=== PATIENT | female | born 1995 | race Two or more races ===

== ENCOUNTER 2020-10-18 01:00 | Emergency (ER) | payer SELFPAY ==
[~2020-10-18] VITALS: Ht 160 cm; Wt 48.0 kg
[2020-10-18] MEDS ORDERED: SODIUM CHLORIDE 0.9% 1,000 ML IV ONE (02:00)
[2020-10-18 02:20] LABS: CHLORIDE 106 mEq/L (98-107)
[2020-10-18 02:21] LABS: BASOPHILS % 0.6 % (0.0-2.0); EOSINOPHILS % 0.1 % (0.0-5.0); HEMATOCRIT. 29.5 % (36.0-48.0); HEMOGLOBIN. 9.5 g/dL (12.0-16.0); LYMPHOCYTES % 15.7 % (20.0-50.0); MEAN CORPUSCULAR HEMOGLOBIN 24.8 pg (28.0-32.0); MEAN CORPUSCULAR VOLUME 77.1 fL (81.0-99.0); MEAN PLATELET VOLUME 8.3 fl (7.4-10.4); MONOCYTES % 3.7 % (2.0-8.0); NEUTROPHILS % 79.9 % (40.0-76.0); PLATELET 283 x1000/uL (130-400); RED BLOOD CELL COUNT 3.83 mill/uL (4.2-5.4); RED CELL DISTRIBUTION WIDTH 22.3 % (11.6-14.6)
[2020-10-18 02:22] LABS: HCG SCREEN NEGATIVE
[2020-10-18 02:26] LABS: ETHANOL BLOOD < 10 mg/dL
[2020-10-18] MEDS ORDERED: LORAZEPAM 2MG/ML CPJ IM ONE (02:30)
[2020-10-18 02:59] LABS: HEPATITIS B SURFACE ANTIGEN NEGATIVE
[2020-10-18] MEDS ORDERED: DIPHENHYDRAMINE 50MG/ML VIAL IM ONE (03:15)
[2020-10-18] MEDS ORDERED: HALOPERIDOL LACTATE 5MG/ML VIAL IM ONE (03:15)
[2020-10-18 05:26] LABS: PLATELET ESTIMATE NORMAL
[2020-10-18 05:27] LABS: CLARITY URINE CLEAR (CLEAR); COLOR URINE YELLOW (YELLOW); KETONES URINE NEGATIVE (NEGATIVE); LEUKOCYTE ESTERASE URINE NEGATIVE (NEGATIVE); NITRITE URINE NEGATIVE (NEGATIVE); OCCULT BLOOD URINE NEGATIVE (NEGATIVE); PH URINE 8.5 (4.5-8.0); PROTEIN URINE NEGATIVE (NEGATIVE); SPECIFIC GRAVITY URINE 1.006 (1.005-1.030); UROBILINOGEN URINE 0.2 E.U./dL (0.2-1.0)
[2020-10-18 05:36] LABS: OPIATES URINE SCREEN NEGATIVE (NEGATIVE)
[2020-10-18 05:37] LABS: *AMPHETAMINES SCREEN URINE NEGATIVE (NEGATIVE); *BARBITURATES SCREEN URINE NEGATIVE (NEGATIVE); METHADONE URINE SCREEN NEGATIVE (NEGATIVE)
[2020-10-18 05:46] LABS: *BENZODIAZEPINES SCREEN URINE PRESUMTIVE POSITIVE (NEGATIVE); CANNABINOID URINE SCREEN PRESUMTIVE POSITIVE (NEGATIVE); PHENCYCLIDINE URINE SCREEN PRESUMTIVE POSITIVE (NEGATIVE)
[2020-10-18 05:47] LABS: *COCAINE SCREEN URINE PRESUMTIVE POSITIVE (NEGATIVE)
[2020-10-18 22:45] VITALS: BP 142/86
== END 2020-10-18 22:50 | disposition home or self-care (01) ==
LOC: EDBD 01:00 → ER 01:00
DX: F19.10 Other psychoactive substance abuse, uncomplicated (principal); D64.9 Anemia, unspecified; E87.6 Hypokalemia
CPT/HCPCS: 36415; 80053; 80305; 80320; 81003; 82962; 84703; 85025; 96360; 96361; 96372; 99285; J1200; J1630; J2060; J7030; Z7610; G0480